=== PATIENT | male | born 1945 | race Caucasian/White ===

== ENCOUNTER 2021-09-13 08:11 | Outpatient (CLI) | payer MEDICARE, BC, SELFPAY ==
--- NOTE | 2021-09-13 | CT_ITS ---
WS: [id number] CT NECK TECHNIQUE: Contrast-enhanced CT of the neck with coronal and sagittal reformatted images. CLINICAL INFORMATION: LESIONS OF ORAL MUCOSA COMPARISON: None. DLP: 1208.[address] scans at [facility] use at least one of these dose optimization techniques: automated e xposure control; mA and/or kV adjustment per patient size (includes targeted exams where dose is matc hed to clinical indication); or iterative reconstruction. FINDINGS: Mastoid air cells are well aerated. Mild mucosal thickening in the ethmoid air cells. Paranasal sinus es are otherwise well aerated. Partially visualized intracranial contents are normal. Intracranial va scular calcification. Normal parotid and submandibular glands. No evidence of supraglottic or glottic mass. Subglottic airw ay is patent. No cervical lymphadenopathy. Mild spondylitic changes cervical spine. Right carotid endarterectomy. 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 Arterial stents in the innominate, left common carotid, and proximal subclavian arteries.Calcified pulmonary opacities in t he upper lobes are similar to 2014. CT/CT neck w con* [id number] IMPRESSION: 1. Normal salivary glands. 2. No evidence of supraglottic or glottic mass. No cervical lymphadenopathy. 3. Mastoid air cells are well aerated. 4. Mild mucosal thickening paranasal sinuses. 5. No other acute findings.
[2021-09-13 09:10] LABS: Blood Urea Nitrogen 19 mg/dL (8-23)
[2021-09-13] MEDS: iohexol 300 mg/mL 100 mL Btl IV (10:23)
== END 2021-09-13 08:12 | disposition home or self-care (01) ==
PROVIDERS: PCP Family Medicine; Visit Provider Specialist
DX: K13.79 Other lesions of oral mucosa (principal)
CPT/HCPCS: 70491; 82565; 84520; Q9967

== ENCOUNTER 2022-06-13 16:55 | Outpatient (CLI) | payer MEDICARE, BC, SELFPAY ==
--- NOTE | 2022-06-13 17:21 | XR_ITS ---
WS: [id number] [id number] REASON FOR EXAM: OTHER DISTURBANCES OF ORAL EPITHELIUM,INCLUDING TONGUE FINDINGS: Temporomandibular joints are overlapped by base of the skull on the oblique views and overlap one ano ther on the lateral views. No abnormality identified. On the AP view temporomandibular joints are obscured by the mastoid bones. No abnormality identified on the available views. XR/[place] [id number] IMPRESSION: Suboptimal positioning with no abnormality identified. Incidental note is made of abnormal bony structure of the sella without enlarge ment. This may be a manifestation of empty sella.
--- NOTE | 2022-06-13 17:21 | XR_ITS ---
WS: [id number] MANDIBLE 2 VIEWS DATE: 06/13/2022 FINDINGS: Anterior lower dental implants. No bony abnormality of the mandible is identified. No soft tissue abnormality is noted.
== END 2022-06-13 16:56 | disposition home or self-care (01) ==
PROVIDERS: PCP Nurse Practitioner Family; Visit Provider Specialist
DX: K13.29 Other disturbances of oral epithelium, including tongue (principal); R22.0 Localized swelling, mass and lump, head
CPT/HCPCS: 70100; 70330